=== PATIENT | male | born 2000 ===

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

== ENCOUNTER 2023-01-03 14:46 | Outpatient (REF) | payer MEDICAID, OTHER, SELFPAY ==
[2023-01-06 15:23] LABS: TS Negative Control Passed; TS Panel A 0; TS Panel B 0; TS Positive Control Passed; TSpotTB Negative (Negative)
== END 2023-01-03 14:47 | disposition home or self-care (01) ==
LOC: HO.HHCL 14:46
PROVIDERS: Visit Provider Nurse Practitioner Primary Care
DX: Z00.00 Encounter for general adult medical examination without abnormal findings (principal); Z11.1 Encounter for screening for respiratory tuberculosis
CPT/HCPCS: 36415; 86481

== ENCOUNTER 2024-01-29 11:32 | Emergency (ER) | payer MEDICAID, OTHER, SELFPAY ==
[2024-01-29 11:42] VITALS: BP 123/68; PULSE 58; RESP 16; TEMP 36.9; O2SAT 98; BMI 22.1
--- NOTE | 2024-01-29 11:43 | ED.UPPEXIN ---
HPI - Extremity Injury (Upper) General Chief Complaint: Wound/Laceration Stated Complaint: l finger lac Time Seen by Provider: 01/29/24 12:14 Source: patient Mode of arrival: ambulatory Limitations: no limitations History of Present Illness ED Provider: Mirza Terry PA-C HPI narrative: 23-year-old male presents to the ER for evaluation of a laceration sustained to his left pinky finger while he was using a saw today. He states he was working at his home when he was using a mill saw, a piece of metal slipped and cut his pinky finger. The saw did not cut his finger. He reports significant bleeding at home that was unable to be stopped we came to the ER for evaluation. Patient reports the laceration is over the knuckle of the pinky digit on the left hand. He is able to fully extend and flex the finger but it causes worsening bleeding. He is up-to-date on tetanus. He denies any numbness or tingling. No other injuries. MD complaint: injury to: left and finger Onset (ago): minute(s) Other Extremity Injury: left: fingers Other injuries: none Handedness: right Place: home Severity: mild Relieving factors: rest Exacerbating factors: movement of extremity Context: laceration Associated symptoms: denies other symptoms Treatments prior to arrival: bandage Related Data Allergies Allergy/AdvReac Type Severity Reaction Status Date / Time No Known Allergies Allergy Verified 01/29/24 11:45 Review of Systems Review of Systems: Yes all other systems are reviewed and are negative PMFSH Social History Social History Advance Directives: No Advance Directives Information Provided: No Physical Exam Vital Signs: Vital Signs: Last Vital Signs Temp 98.4 F 01/29/24 13:22 Pulse 58 01/29/24 13:22 Resp 16 01/29/24 13:22 BP 123/68 01/29/24 13:22 Pulse Ox 98 01/29/24 13:22 O2 Del Method Room Air 01/29/24 13:22 BMI result Body Mass Index 22.1 Appearance: Alert. Oriented X3. No acute distress. HEENT: normal inspection CVS: Normal heart rate and rhythm. Pulses normal. Respiratory: No respiratory distress. Skin: Skin warm and dry. Normal skin color. Normal skin turgor. No rashes. Extremities: Dorsal aspect of the left pinky finger with a linear, slightly irregular, 1.5 cm laceration over the D IP with slight oozing, no involvement of the nail bed. Full flexion and extension of the left pinky finger. Cap refill less than 3 seconds. Neuro: Oriented X 3. No motor deficit. No sensory deficit. Course Course Course Narrative: This is a Rapid Medical Examination (RME) performed by Chau Cisneros PA-C in triage. Full HPI, ROS, assessment and treatment plan per primary provider in the Main ED. 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 tetanus updated last year. + 1cm lac over left fifth DIP. limited ROM to dip. FROM intact to PIP and MCP. Plan: lac repair Medications Administered Discontinued Medications Generic Name Dose Route Start Last Admin Trade Name Freq PRN Reason Stop Dose Admin Lidocaine HCl 5 ml 01/29/24 12:16 01/29/24 13:18 Lidocaine Hcl 1 % Mpf 5 Ml Vial SUBCUT 01/29/24 12:17 5 ml ONCE ONE Administration Medical Decision Making Medical Decision Making MDM Narrative: 23-year-old right-hand dominant male presents to the ER for evaluation of a superficial laceration to the left pinky finger sustained on a piece of metal while using a saw. Wound was explored and irrigated, deep structures appear intact. He has full tendon function. Doubt bony involvement. Wound was sutured closed with 4 sutures with adequate approximation. Does not require empiric antibiotics. We discussed wound care. Stable for discharge home. Differential Diagnosis Differential Diagnoses: The differential diagnosis associated with the presentation includes Open fracture, superficial laceration, deep laceration, tendon injury External Record Review External record reviewed: Outpatient record and Prior outpatient labs Tests considered The following testing was considered but not selected: Considered x-ray of the finger to rule out open fracture however mechanism and exam are not consistent with this Prescription Management I considered prescription management with: Pain Medication Procedures Laceration Laceration 1: Side (If applicable): left Size (cm): 1.5 Description: linear and irregular Depth: simple, single layer Local Anesthetic: lidocaine 1% Amount of anesthesia used (mL): 1 Pre-repair: wound explored, irrigated extensively and deep structures intact Skin layer closed with: nylon Size (cm): 4-0 Number of sutures: 4 Technique: simple, interrupted Discharge Plan Discharge Clinical Impression: Finger laceration Patient Disposition: Home, Self-Care Instructions: Finger Laceration (ED) Additional Instructions: 4 sutures were were used to close your wound today You will need your stitches out in 7 days. See you doctor for this or come back to the ER and we will remove them. Do not get wet for 24 hours, after that you can briefly wash with soap and water then pat dry. Keep wound clean and covered. Do not submerge in water, no swimming. If you develop signs of infection including increased pain, swelling, redness or drainage of pus come back to the ER for further evaluation. Interventions: ED Discharge Assessment Last Done: 01/29/24 13:22 Discharge Date/Time: 01/29/24 13:23 Print Language: Occitan
[2024-01-29] MEDS: Lidocaine HCl 1 % MPF 5 ML VIAL SUBCUT (13:18)
[2024-01-29 13:22] VITALS: BP 123/68; PULSE 58; RESP 16; TEMP 36.9; O2SAT 98
== END 2024-01-29 13:23 | disposition home or self-care (01) ==
PROVIDERS: Emergency Provider Emergency Medicine; PCP Nurse Practitioner Primary Care
DX: S61.217A Laceration without foreign body of left little finger without damage to nail, initial encounter (principal); W26.9XXA Contact with unspecified sharp object(s), initial encounter; Y93.89 Activity, other specified; Y92.029 Unspecified place in mobile home as the place of occurrence of the external cause; Y99.9 Unspecified external cause status
CPT/HCPCS: 12001; 99283; 99284

== ENCOUNTER 2025-01-11 16:03 | Outpatient (REF) | payer MEDICAID, OTHER, SELFPAY ==
--- OUTSIDE RECORDS SUMMARY | 2025-01-11 16:13 | XMS_ITS | Encounter Summary ---
Author Organization [employer] Address [address] [place] [address] Care Team Providers Care Dental Assistant Instructor Name Role Phone Joelle Cagle Primary Care Provider [phone] Encounter Details Date Type Department Care Team (Latest Contact Info) Description 01/11/2025 Travel Social History Tobacco Use Types Packs/Day Years Used Date Smoking Tobacco: Never Smokeless Tobacco: Never Alcohol Use Standard Drinks/Week Comments Never 0 (1 standard drink = 0.6 oz pur e alcohol) Depression Answer Date Recorded Patient Health Questionnaire-9 Score 4 01/11/2025 Patient Health Questionnaire-9 Score 4 01/11/2025 Last PHQ-9: Questionnaire Data Not on file 0 01/11/2025 Housing Stability Answer Date Recorded What is your housing situation today? I have alecia stevens 12/30/[address] you li ve. Do you have problems with any of the following? None of the above 12/30/2023 Food Insecurity Answer Date Recorded Within the past 12 months, y ou worried that your food would run out before you got money to buy more: Never True 12/30/2023 Within the past 12 months,th e food you bought just didn't last and you didn't have enough money to get more: Never True Transportation Answer Date Recorded In the past 12 months, has l ack of transportation kept you from medical appts, meetings, work or from getting things needed for daily living? No 12/30/2023 Utilities Answer Date Recorded In the past 12 months, has t he electric, gas, oil or water company threatened to shut off services in your home? No 12/30/2023 Depression Answer Date Recorded Patient Health Questionnaire-2 Score 2 01/11/2025 Internet Access Answer Date Recorded Internet Access Q1 Yes 02/09/2024 Internet Access Q2 Not on file 02/09/2024 Sex and Gender Information Value Date Recorded Sex Assigned at Male 04/08/2022 10:34 AM EDT Legal Sex Male 10:34 AM EDT Gender Identity Male 04/08/2022 10:34 AM EDT Sexual Orientation Straight 04/08/2022 10 :34 AM EDT documented as of this encounter Functional Status * Over the past 2 weeks, how often have you been bothered by any of the following problems? Question Answer Date of Assessment Author Patient Health Questionnaire -2 Score 2 01/11/2025 11:13 AM EDT Sarkis Montano MA * Little interest or pleasure in doing things Answer Date of Assessment Author Not at all 01/11/2025 11:13 AM EDT Sarkis Montano MA * Feeling down, depressed, or hopeless Answer Date of Assessment Author More than half the days 01/11/2025 11:13 AM EDT Sarkis Montano MA * Trouble falling or staying asleep, or sleeping too much Answer Date of Assessment Author Not at all 01/11/2025 11:13 AM EDT Sarkis Montano MA * Feeling tired or having little energy Answer Date of Assessment Author More than half the days 01/11/2025 11:13 AM EDT Sarkis Montano MA * Poor appetite or overeating Answer Date of Assessment Author Not at all 01/11/2025 11:13 AM EDT Sarkis Montano MA * Feeling bad about yourself - or that you are a failure or have let yourself or your family down Answer Date of Assessment Author Not at all 01/11/2025 11:13 AM EDT Sarkis Montano MA * Trouble concentrating on things, such as reading the newspaper or watching television Answer Date of Assessment Author Not at all 01/11/2025 11:13 AM EDT Sarkis Montano MA * Moving or speaking so slowly that other people could have noticed? Or the opposite - being so fidgety or restless that you have been moving around a lot more than usual. Answer Date of Assessment Author Not at all 01/11/2025 11:13 AM EDT Sarkis Montano MA * Thoughts that you would be better off or hurting yourself in some way Answer Date of Assessment Author Not at all 01/11/2025 11:13 AM EDT Sarkis Montano MA * Patient Health Questionnaire-9 Score Answer Date of Assessment Author 4 01/11/2025 11:13 AM EDT Sarkis Montano MA * How difficult have these problems made it for you to do your work, take care of things at home, or get along with other people? Answer Date of Assessment Author Not difficult at all 01/11/2025 11:13 AM EDT Sarkis Bob MA * Over the last 2 weeks, how often have you been bothered by any of the following problems? Question Answer Date of Assessment Author Feeling nervous, anxious, or on edge 1 01/11/2025 11:13 AM EDT Sarkis Montano MA Not being able to stop or co ntrol worrying 1 01/11/2025 11:13 AM EDT Sarkis Montano MA Worrying too much about diff erent things 1 01/11/2025 11:13 AM EDT Sarkis Montano MA Trouble relaxing 1 01/11/2025 11:13 AM EDT Sarkis Montano MA Being so restless that it is hard to sit still 0 01/11/2025 11:13 AM EDT Sarkis Montano MA Becoming easily annoyed or irritable 1 01/11/2025 11:13 AM EDT Sarkis Montano MA Feeling afraid as if somethi ng awful might happen 1 01/11/2025 11:13 AM EDT Sarkis Montano MA SHIRLEY-7 Total Score 6 01/11/2025 11:13 AM EDT Sarkis Montano MA documented as of this encounter Plan of Treatment Upcoming Encounters Date Type Department Care Team (Late st Contact Info) Description 01/25/2025 8:00 AM EDT Office Visit [facility] [address] [place] [address] Adam Pavon BDS [address] [place] [address] 05/16/2025 10:00 AM EST Office Visit [facility] [address] [place], [place] [id number] Tete Iyer [address] [place], [place] [id number] documented as of this encounter Visit Diagnoses Not on filedocumented in this encounter Additional Health Concerns Assessment Noted Time PHQ-9 Depression Total Score: 4 01/12/20 25 11:13 AM EDT documented as of this encounter Care Teams Dental Assistant Instructor Relationship Specialty Start Date End Date Joelle Cagle ANP [address] [place] [address] PCP - General Family Medicine 11/19/21 documented as of this encounter
== END 2025-01-11 16:04 | disposition home or self-care (01) ==
LOC: HO.HHCLNP 16:03
PROVIDERS: Visit Provider Nurse Practitioner Primary Care
DX: K21.9 Gastro-esophageal reflux disease without esophagitis (principal)
CPT/HCPCS: 83013

== ENCOUNTER 2025-04-15 13:30 | Outpatient (REF) | payer MEDICAID, OTHER, SELFPAY ==
--- OUTSIDE RECORDS SUMMARY | 2025-02-21 07:00 | XMS_ITS | Encounter Summary ---
Author Organization [employer] Address [address] [facility] 7t [place] [address] Care Team Providers Care Fuse Spooler Name Role Phone Joelle Cagle SARINA Primary Care Provider [phone] Reason for Visit * Reason Comments Filling Encounter Details Date Type Department Care Team (Late st Contact Info) Description 02/21/2025 8:00 AM EDT Office Visit [facility] [address] [place], [place] [phone] Adam Pavon BDS [address] [place], [place] [phone] Dental caries (Primary Dx) Social History Tobacco Use Types Packs/Day Years [...] AM EDT documented as of this encounter Last Filed Vital Signs Vital Sign Reading Time Taken Comments Blood Pressure 86/62 02/21/2025 8:09 AM EDT Pulse - - Temperature - - Respiratory Rate - - Oxygen Saturation - - Inhaled Oxygen Concentration - - Weight - - Height - - Body Mass Index - - documented in this encounter Progress Notes * Adam Pavon BDS - 02/21/2025 8:00 AM EDT Images from the original note were not included. Patient seen composite latter-day on tooth #9,12,13. Medical History Reviewed. Today's treatment reason- Existing latter-day with poor marginal integrity, Caries noted with explorer, recurrent caries noted, Decay present on radiograph. Decay excavated and tooth restored using matrix band/mylar strip and wedges as needed. Cavity Cleanser-CHX. Desensitizer - Gluma. Base-Ionosit. . Etch tooth - Yes. Pig Machine Supervisor-i-bond. Composite material - PulpDent Bioactive, [place] Brynn. Vitapan classical A3.5. Contoured, occlusion checked and adjusted, established proximal contacts, finished, polished. Patient made aware of post-op sensitivity, patient understood and satisfied. documented in this encounter Plan of Treatment Upcoming Encounters Date Type Department Care Team (Late st Contact Info) Description 05/31/2025 9:30 AM EST Office Visit [facility] [address] [place] [address] Kathy Guerra documented as of this encounter Procedures Procedure Name Priority Date/Time Associated Diagnosis Comments 13 O RESIN-BASED COMPOSITE - 1 SURF, POSTERIOR Routine 02/21/2025 8:00 AM EDT 12 O RESIN-BASED COMPOSITE - 1 SURF, POSTERIOR Routine 02/21/2025 8:00 AM EDT 9 ML RESIN-BASED COMPOSITE - 2 SURF, ANTERIOR Routine 02/21/2025 8:00 AM EDT CASE PRESENTATION, DETAILED AND EXTENSIVE TREATMENT PLANNING Routine 02/21/2025 8:00 AM EDT documented in this encounter Visit Diagnoses Diagnosis Dental caries- Primary Unspecified dental caries documented in this encounter Additional Health Concerns Assessment Noted Time PHQ-9 Depression Total Score: 4 01/12/20 25 11:13 AM EDT documented as of this encounter Care Teams Fuse Spooler Relationship Specialty Start Date End Date Joelle Cagle ANP [address] [place] [address] PCP - General Family Medicine 11/19/21 documented as of this encounter
--- OUTSIDE RECORDS SUMMARY | 2025-04-15 11:00 | XMS_ITS | Encounter Summary ---
Author Organization [employer] Address [address] [facility] 7t [place] [address] Care Team Providers Care Snuff Drier Name Role Phone Joelle Cagle Primary Care Provider [phone] Encounter Details Date Type Department Care Team (Latest Contact Info) Description 04/15/2025 11:00 AM EST Office Visit [facility] [address] [place], [place] [phone] Joelle Cagle ANP [address] [place], [place] [phone] Gastroesophageal reflux disease without esophagitis (Primary Dx); Gastroesophageal reflux disease, unspecified whether esophagitis present; Non-seasonal allergic rhinitis due to other allergic trigger Social History Tobacco Use Types Packs/Day Years Used Date Smoking Tobacco: Never Passive Smoke Exposure: Never Smokeless Tobacco: Never Tobacco Cessation:Counseling Given: Not Answered Alcohol Use Standard Drinks/Week Comments Never 0 [...] Sign Reading Time Taken Comments Blood Pressure 118/64 04/15/2025 11:09 AM EST Pulse 70 04/15/2025 11:09 AM EST Temperature 36.6 C (97.9 F) 04/15/2025 11:09 AM EST Respiratory Rate 16 04/15/2025 11:0 9 AM EST Oxygen Saturation - - Inhaled Oxygen Concentration - - Weight 73.4 kg (161 lb 12.8 oz) 025 11:09 AM EST Height 177.8 cm (5' 10 ) 04/15/2025 11: 09 AM EST Body Mass Index 23.22 04/15/2025 11:09 AM EST documented in this encounter Progress Notes * SARINA Cotto - 04/15/2025 11:00 AM EST Subjective Kristofer Ashford, 24 years old, here today for follow-up acid reflux. H. Pylori testing negative 01/2025. Acid Reflux - History of acid reflux symptoms, primarily burning sensation, worse in the morning & after long periods without eating - Symptoms improved with nightly omeprazole 20 mg for 2 months prior to visit - Symptoms recurred upon discontinuation of omeprazole, improved again when restarted - Occasional mild symptoms on some days, possibly triggered by fried or fatty foods - Able to eat breakfast normally when taking omeprazole - No daytime symptoms reported as long as certain foods are avoided Nasal Congestion and Allergies - Persistent nasal congestion in the morning, ongoing for at least 2 months - History of using Flonase nightly, stopped for approximately 2 months, then restarted due to worsening symptoms - Tried saline solution before bed, humidifier in bedroom, Zyrtec, and Benadryl without relief - Flonase provided significant improvement; symptoms abated within hours of use - Despite Flonase, continued morning congestion and frequent coughing - Sneezing throughout the day during allergy flare-up approximately 2 weeks prior to visit - Nasal congestion primarily, denies chest congestion - Cat in household, occasional symptoms triggered by cat hair - Symptoms worsened at the beginning of fall Cough and Gag Reflex - Coughing and gagging when brushing tongue, attributed to gag reflex - Dry cough associated with congestion and possible post-nasal drip 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 HENT: Positive for congestion. Negative for sore throat. Respiratory: Positive for cough. Negative for shortness of breath. Cardiovascular: Negative for chest pain. Gastrointestinal: Negative for constipation and diarrhea. Endocrine: Negative for polydipsia, polyphagia and polyuria. Genitourinary: Negative for dysuria. Objective Blood pressure 118/64, pulse 70, temperature 97.9 ??F (36.6 ??C), temperature source Oral, resp. rate 16, height 5' 10 (1.778 m), weight 161 lb 12.8 oz (73.4 kg). Physical Exam Constitutional: General: He is not in acute distress. Appearance: Normal appearance. He is not ill-appearing. HENT: Head: Normocephalic and atraumatic. Eyes: General: No scleral icterus. Extraocular Movements: Extraocular movements intact. Pupils: Pupils are equal, round, and reactive to light. Cardiovascular: Rate and Rhythm: Normal rate. Pulmonary: Effort: Pulmonary effort is normal. No accessory muscle usage or respiratory distress. Neurological: Mental Status: He is alert and oriented to person, place, and time. Psychiatric: Mood and Affect: Mood normal. Behavior: Behavior normal. Diagnoses and all orders for this visit: Gastroesophageal reflux disease without esophagitis: Continue omeprazole 20 mg at bedtime. If daytime symptoms develop, may increase to twice daily dosing. Follow up as needed, with routine follow-up in 6 months. - omeprazole (PriLOSEC) [address] capsule; Take 1 tablet at bedtime daily. Do not crush or chew. Non-seasonal allergic rhinitis due to other allergic trigger - Allergic rhinitis symptoms persist, with nasal congestion and sneezing, responsive to fluticasonenasal spray. - Continue fluticasone nasal spray as needed, with periodic discontinuation to assess symptom control. Use nasal saline solution. May consider neti pot for sinus rinsing. Minimize exposure to allergens such as pet hair and maintain regular vacuuming of carpets. - fluticasone (Flonase) 50 MCG/ACT nasal spray; Administer 1-2 sprays into each nostril if needed each day for rhinitis or allergies. Shake gently. Before first use, prime pump. After use, clean tip and replace cap. Prescription - Omeprazole 20 mg, once daily at bedtime - Fluticasone propionate (Flonase) nasal spray, intranasal nightly, dispense 48 mL Appointments - Follow-up appointment in 6 months This note was drafted using Ambient (AI) technology. The patient/patient's guardian has been informed and has consented to the use of this technology: Yes documented in this encounter Plan of Treatment Upcoming Encounters Date Type Department Care Team (Late st Contact Info) Description 05/31/2025 9:30 AM EST Office Visit [facility] [address] [place] [address] Kathy Guerra documented as of this encounter Visit Diagnoses Diagnosis Gastroesophageal reflux disease without esophagitis- Primary Esophageal reflux Gastroesophageal reflux disease, unspecified whether esophagitis present Non-seasonal allergic rhinitis due to other allergic trigger documented in this encounter Additional Health Concerns Assessment Noted Time PHQ-9 Depression Total Score: 4 01/12/20 25 11:13 AM EDT documented as of this encounter Care Teams Snuff Drier Relationship Specialty Start Date End Date Joelle Cagle ANP [address] [place] [address] PCP - General Family Medicine 11/19/21 documented as of this encounter
[2025-04-15 15:20] LABS: CT PCR Urine NOT DETECTED (Not Detect.); NG PCR Urine NOT DETECTED (Not Detect.)
--- OUTSIDE RECORDS SUMMARY | 2025-04-15 15:36 | XMS_ITS | Encounter Summary ---
Author Organization [employer] Address [address] [facility] 7t [place] [address] Care Team Providers Care Unit Manager Rn Name Role Phone Joelle Cagle Primary Care Provider [phone] Encounter Details Date Type Department Care Team (Latest Contact Info) Description 04/15/2025 Travel Social History Tobacco Use Types Packs/Day Years Used Date Smoking Tobacco: Never Passive Smoke Exposure: Never Smokeless Tobacco: Never Alcohol Use Standard [...] AM EDT documented as of this encounter Plan of Treatment Upcoming Encounters Date Type Department Care Team (Late st Contact Info) Description 05/31/2025 9:30 AM EST Office Visit [facility] [address] [place] [address] Kathy Guerra documented as of this encounter Visit Diagnoses Not on filedocumented in this encounter Additional Health Concerns Assessment Noted Time PHQ-9 Depression Total Score: 4 01/12/20 25 11:13 AM EDT documented as of this encounter Care Teams Unit Manager Rn Relationship Specialty Start Date End Date Joelle Cagle ANP [address] [place] [address] PCP - General Family Medicine 11/19/21 documented as of this encounter
--- OUTSIDE RECORDS SUMMARY | 2025-04-15 15:36 | XMS_ITS | Encounter Summary ---
Author Organization [employer] Address [address] [facility] [address] [place] [address] Care Team Providers Care Medical Consultant Name Role Phone Joelle Cagle Primary Care Provider [phone] Encounter Details Date Type Department Care Team (Latest Contact Info) Description 04/14/2025 Travel Social History Tobacco Use Types Packs/Day [...] Description 05/31/2025 9:30 AM EST Office Visit [facility] [address] [place] [address] Kathy Guerra documented as of this encounter Visit Diagnoses Not on filedocumented in this encounter Additional Health Concerns Assessment Noted Time PHQ-9 Depression Total Score: 4 01/12/20 25 11:13 AM EDT documented as of this encounter Care Teams Medical Consultant Relationship Specialty Start Date End Date Joelle Cagle ANP [address] [place] [address] PCP - General Family Medicine 11/19/21 documented as of this encounter
--- OUTSIDE RECORDS SUMMARY | 2025-04-15 15:36 | XMS_ITS | Encounter Summary ---
Author Organization [employer] Address [address] [facility] 7t [place] [address] Care Team Providers Care Applications Engineer Manufacturing Name Role Phone Joelle Cagle Primary Care Provider [phone] Reason for Visit * Reason Onset Date Comments chart prep 04/13/2025 Encounter Details Date Type Department Care Team ([facility] st Contact Info) Description 04/13/2025 Telephone [facility] [address] [place], [place] [phone] Joelle Cagle ANP [address] [place] [address] chart prep Social History Tobacco Use Types Packs/Day Years [...] AM EDT documented as of this encounter Miscellaneous Notes * Telephone Encounter - Hossein Brewer [place] - 04/13/2025 1:07 PM EST Chart Prep Labs: not done Images: not applicable Referrals: complete Vaccines due: Covid and Flu Screenings: STI screening and HIV screening Overdue care gaps: Not applicable documented in this encounter Plan of Treatment Upcoming Encounters Date Type Department Care Team (Late st Contact Info) Description 05/31/2025 9:30 AM EST Office Visit [facility] [address] [place] [address] Katyh Guerra documented as of this encounter Visit Diagnoses Not on filedocumented in this encounter Additional Health Concerns Assessment Noted Time PHQ-9 Depression Total Score: 4 01/12/20 25 11:13 AM EDT documented as of this encounter Care Teams Applications Engineer Manufacturing Relationship Specialty Start Date End Date Joelle Cagle ANP [address] [place] [address] PCP - General Family Medicine 11/19/21 documented as of this encounter
--- OUTSIDE RECORDS SUMMARY | 2025-04-15 15:36 | XMS_ITS | Clinical Summary ---
Author Organization [employer] Address [address] [facility] 7t [place] [address] Care Team Providers Care Esthetic Dermatologist Name Role Phone Joelle Cagle SARINA Primary Care Provider [phone] Allergies No known active allergies Medications * This document contains information received from the source organization and may not represent a complete record from that organization. omeprazole (PriLOSEC) [address] capsuleIndicat ions:Gastroeso phageal reflux disease, unspecified whether esophagitis present Take 1 tablet at bedtime daily. Do not crush or chew. 90 capsule 3 04/15/20 25 Active fluticasone (Flonase) 50 MCG/ACT nasal sprayIndicatio ns:Non-seasona l allergic rhinitis due to other allergic trigger Administer 1-2 sprays into each nostril if needed each day for rhinitis or allergies. Shake gently. Before first use, prime pump. After use, clean tip and replace cap. 48 mL 2 04/15/20 25 026 Active omeprazole (PriLOSEC) [address] capsuleIndicat ions:Gastroeso phageal reflux disease, unspecified whether esophagitis present Take 1 tablet at bedtime daily for 2 mos and then as needed. Do not crush or chew. 90 capsule 01/12/20 25 025 Discontinued(Re order (will not trigger notification to Pharmacy)) Active Problems Problem Noted Date Diagnosed Date Gastroesophageal reflux disease 01/11/2025 Grief counseling 01/11/2025 Depression, unspecified 01/11/2025 Encounter for screening exam ination for mental health and behavioral disorders 01/09/2024 Incomplete right bundle branch block 01/01/2023 Encounters Date Type Department Care Team Description 04/15/2025 11:00 AM EST Office Visit [address] [address] Joelle Cagle ANP Gastroesophageal reflux disease without esophagitis (Primary Dx); Gastroesophageal reflux disease, unspecified whether esophagitis present; Non-seasonal allergic rhinitis due to other allergic trigger 04/15/2025 Travel 04/14/2025 Travel 04/13/[address] [address] Joelle Cagle ANP chart prep 02/21/2025 8:00 AM EDT Office Visit [facility] [address] [place] [id number] Adam Pavon BDS Dental caries (Primary Dx) 02/16/2025 Travel 02/14/[address] [address] Joelle Cagle ANP nov recall 01/25/2025 8:00 AM EDT Office Visit [facility] [address] [place] [address] Adam Pavon BDS Localized gingival recession (Primary Dx) 01/24/2025 Travel 01/13/2025 Results Follow-Up [address] [address] Joelle Cagle ANP Helicobacter pylori, Urea Breath Test from Last 3 Months Immunizations Immunization Administration Dates Next Due DTaP 08/15/2003, 3,2002,06/18 HPV 9-Valent 08/21/2017,02/22/2017 Hep B, Adolescent or Pediatric 2,05/10/2011,04/10/2011,10/18,2002,2002 Hib (PRP-OMP) 2002,2002,2002 IPV 08/15/2003, 3,2002,06/18 Influenza injectable quadriv alent preservative free 07/22/2019 MMR 01/24/2023,04/22/2003 Meningococcal B, Recombinant 07/22/2019 Meningococcal MCV4P [id number]-135 07/22/2019,01/22/20 18 Pfizer Covid-19 Vaccine 12+ 10/06/2020, Tdap 02/21/2021 Varicella 01/24/2023,01/21/2018 Social History Tobacco Use Types Packs/Day Years [...] Orientation Straight 04/08/2022 10 :34 AM EDT Last Filed Vital Signs Vital Sign Reading Time Taken Comments Blood Pressure 118/64 04/15/2025 11:09 AM EST Pulse 70 04/15/2025 11:09 AM EST Temperature 36.6 C (97.9 F) 04/15/2025 11:09 AM EST Respiratory Rate 16 04/15/2025 11:0 9 AM EST Oxygen Saturation 98% 01/11/2025 10: 14 AM EDT Inhaled Oxygen Concentration - - Weight 73.4 kg (161 lb 12.8 oz) 025 11:09 AM EST Height 177.8 cm (5' 10 ) 04/15/2025 11: 09 AM EST Body Mass Index 23.22 04/15/2025 11:09 AM EST Plan of Treatment Upcoming Encounters Date Type Department Care Team (Late st Contact Info) Description 05/31/2025 9:30 AM EST Office Visit [facility] [address] [place] [address] Kathy Guerra Health Maintenance Due Date Last Done Comments Chlamydia and Gonorrhea Screening 2002 04/15/2025 HIV Screening 2002 Family Planning (PISQ) 2017 Meningococcal B Vaccine (2 of 2 - Trumenba SCDM 2-dose series) 01/20/2020 07/22/2019 Hepatitis C Screening 2020 Dental X-Ray: Full Mouth 12/19/2020 12/18/2017 COVID-19 Vaccine ( season) 2025 10/06/2020, 09/14/2020 Influenza Vaccine (#1) 2025 07/22/2019 Dental Prophylaxis 05/07/2025 11/03/2024, 1 , 02/15/2019, Additional history exists Dental Oral Exam 07/29/2025 01/25/2025, , 02/15/2019, Additional history exists Dental X-Ray: Bitewings 11/04/2025 11/03/2024, 12/18 SDOH Screening 01/04/2026 01/04/2025 Alcohol/Substance Use Screening 01/11/2026 01/11/2025 Depression Screening 01/11/2026 01/11/2025, 01/12/20 25 Disability Screening 01/11/2026 01/11/2025 Tobacco Screening 04/15/2026 04/15/2025 DTaP/Tdap/Td Vaccines (6 - Td or Tdap) 02/21/2031 02/21/2021, 08/15/2003, 2002, Additional history exists Zoster Vaccines (1 of 2) 2052 RSV Patients and Patients Aged 60 years or older (1 - 1-dose 75+ series) 2077 HIB Vaccines Aged Out 2002, 08/07, 2002 No longer eligible based on patient's age to complete this topic IPV Vaccines Completed 08/15/2003, 10/07, 2002, Additional history exists Hepatitis B Vaccines Completed 10/10/2011, 05/10/2011, 04/10/2011, Additional history exists HPV Vaccines Completed 08/21/2017, 02/22/2017 Meningococcal Vaccine Completed 07/22/2019, 018 Hepatitis A Vaccines Aged Out No long er eligible based on patient's age to complete this topic Pneumococcal Vaccine: Pediatrics (0 to 5 Years) and At-Risk Patients (6 to 49) Years Aged Out No longer eligible based on patient's age to complete this topic RSV under 20 months Aged Out No longe r eligible based on patient's age to complete this topic Rotavirus Vaccines Aged Out No longer eligible based on patient's age to complete this topic Procedures Procedure Name Priority Date/Time Associated Diagnosis Comments CHLAMYDIA/TRICHOMONAS /NEISSERIA GONORRHOEAE, PCR, URINE Routine 04/15/2025 11:35 AM EST Routine screening for STI (sexually transmitted infection) CASE PRESENTATION, DETAILED AND EXTENSIVE TREATMENT PLANNING Routine 02/21/2025 8:00 AM EDT 13 O RESIN-BASED COMPOSITE - 1 SURF, POSTERIOR Routine 02/21/2025 8:00 AM EDT 12 O RESIN-BASED COMPOSITE - 1 SURF, POSTERIOR Routine 02/21/2025 8:00 AM EDT 9 ML RESIN-BASED COMPOSITE - 2 SURF, ANTERIOR Routine 02/21/2025 8:00 AM EDT CASE PRESENTATION, DETAILED AND EXTENSIVE TREATMENT PLANNING Routine 01/25/2025 8:00 AM EDT PERIODIC ORAL EVALUATION - ESTABLISHED PATIENT Routine 01/25/2025 8:00 AM EDT PROPHYLAXIS - ADULT Routine 11/03/2024 4 :00 PM EDT BITEWINGS - 4 RADIOGRAPHIC IMAGES Routine 11/03/2024 4:00 PM EDT PANORAMIC RADIOGRAPHIC IMAGE Routine 12/18/2017 12:00 AM EDT from Last 3 Months or Most Recently Relevant to Health Maintenance Results * Chlamydia/N. Gonorrhoeae, PCR, Urine (04/15/2025 11:35 AM EST) CT PCR, Urine NOT DETECTED Not Detect. [facility] Comment:A not detected test result does not exclude the possibilityof infection because test results can be affected byimproper specimen collection, concurrent antibiotic therapy,or the number of organisms in the specimen which may bebelow the sensitivity of the test. As with many diagnostictests, results from the Xpert CT/NG assay should beinterpreted in conjunction with other laboratory andclinical data available to the clinician.The Xpert CT/NG assay should not be used for the evaluationof suspected sexual abuse or for other medico-legalindications. Additional testing is recommended in anycircumstance when false positive or false negative resultscould lead to adverse medical, social or psychologicalconsequences. NG PCR, Urine NOT DETECTED Not Detect. [facility] Comment:A not detected test result does not exclude the possibilityof infection because test results can be affected byimproper specimen collection, concurrent antibiotic therapy,or the number of organisms in the specimen which may bebelow the sensitivity of the test. As with many diagnostictests, results from the Xpert CT/NG assay should beinterpreted in conjunction with other laboratory andclinical data available to the clinician.The Xpert CT/NG assay should not be used for the evaluationof suspected sexual abuse or for other medico-legalindications. Additional testing is recommended in anycircumstance when false positive or false negative resultscould lead to adverse medical, social or psychologicalconsequences. Urine (Urine, Random) 04/15/2025 11:35 AM EST 04/15/2025 1:32 PM EST Joelle Cagle [facility] URINE ORDERABLES Final Resul t [facility] [address] [address] [phone] from Last 3 Months Insurance [employer] [place] - [facility] [place] (MEDICAID) Care Teams Esthetic Dermatologist Relationship Specialty Start Date End Date Joelle Cagle ANP [address] [place] [id number] PCP - General Family Medicine 11/19/21
== END 2025-04-15 13:31 | disposition home or self-care (01) ==
LOC: HO.HHCLNP 13:30
PROVIDERS: Visit Provider Nurse Practitioner Primary Care
DX: Z20.2 Contact with and (suspected) exposure to infections with a predominantly sexual mode of transmission (principal)
CPT/HCPCS: 87491; 87591